=== PATIENT | female | born 1985 | race Caucasian/White ===

== ENCOUNTER 2020-03-04 15:07 | Emergency (ER) | payer OTHER ==
[~2020-03-04] VITALS: Ht 167.6 cm; Wt 72.6 kg
[2020-03-04] MEDS ORDERED: LIDOCAINE VISC100 ML TOP (15:46)
[2020-03-04 15:58] VITALS: BP 115/70
== END 2020-03-04 15:59 | disposition home or self-care (01) ==
LOC: M.ERS 15:07
DX: G89.18 Other acute postprocedural pain (principal); Z87.442 Personal history of urinary calculi; Z88.1 Allergy status to other antibiotic agents